=== PATIENT | male | born 1970 | race African-American/Black ===

== ENCOUNTER 2023-10-27 16:26 | Inpatient (IN) | payer OTHER ==
[2023-10-27] MEDS ORDERED: PIPERACILLIN/TAZOB 4.5 GM 4.5 GM/100 ML BAG IVPB ONE (17:11)
[2023-10-27] MEDS: ACETAMINOPHEN 1000 MG/100 ML BAG IVPB ONE (17:15)
[2023-10-27] MEDS: SODIUM CHLORIDE 0.9% 1000 ML INFUS.BAG IV STA (17:15)
[2023-10-27 17:16] LABS: VENOUS BASE EXCESS 0.9 mmol/L (-2-2); VENOUS O2 SATURATION 98.3 % (70-80); VENOUS PCO2 32.8 mmHg (38-52); VENOUS PH 7.483 (7.310-7.410)
[2023-10-27 17:20] LABS: BASO % 0.4 % (0-2.0); HEMATOCRIT 26.7 % (35.4-49); HEMOGLOBIN 9.1 GM/dL (11.7-16.9); LYMPH % 17.4 % (8-40); MCH 31.7 pg (25.7-33.7); MCHC 34.2 g/dl (32.0-35.9); MEAN CELL VOLUME 92.6 fl (80-96); MEAN PLT VOLUME 7.5 fl (7.5-11.1); MONO % 14.1 % (3.8-10.2); NEUT % 68.1 % (42.8-82.8); PLATELET COUNT 374 10^3/uL (134-434); RBC 2.88 M/mm3 (4.00-5.60); RDW 15.6 % (11.9-15.9); WHITE BLOOD COUNT 13.3 K/mm3 (4.0-10.0)
[2023-10-27 17:38] LABS: POTASSIUM 4.2 mmol/L (3.5-5.1)
[2023-10-27 17:38] LABS: EPI CELLS >36 /uL (0-25.1); HYALINE CASTS 3 /uL (0-3.1); PH,URINE 6.5 (5.0-8.0); URINE APPEARANCE CLEAR; URINE BACTERIA 72 /uL (0-1359); URINE BILIRUBIN NEGATIVE (NEGATIVE); URINE COLOR RED; URINE GLUCOSE (UA) NEGATIVE (NEGATIVE); URINE KETONE TRACE (NEGATIVE); URINE LEUK ESTERASE 1+ (NEGATIVE); URINE NITRITE NEGATIVE (NEGATIVE); URINE PROTEIN 1+ (NEGATIVE); URINE RBC 6489 /uL (0-23.9); URINE WBC 107 /uL (0-25.8)
[2023-10-27 17:39] LABS: CALCIUM 8.2 mg/dL (8.5-10.1)
[2023-10-27 17:40] LABS: ALBUMIN 2.6 g/dl (3.4-5.0)
[2023-10-27 17:43] LABS: CREATININE 0.6 mg/dL (0.55-1.3)
[2023-10-27 17:44] LABS: LACTIC ACID 2.1 mmol/L (0.4-2.0)
[2023-10-27 17:44] LABS: BILIRUBIN,TOTAL 0.5 mg/dL (0.2-1); TOT PROT 6.8 g/dl (6.4-8.2)
[2023-10-27 17:45] LABS: INR 1.71 (0.83-1.09)
[2023-10-27] MEDS: PIPERACILLIN/TAZOB 4.5 GM 4.5 GM in DEXTROSE 5%-WATER 100 ML IVPB ONE (17:45)
[2023-10-27] MEDS: VANCOMYCIN 1,000 MG in DEXTROSE 5%-WATER - 250 ML IVPB ONE (17:50)
[2023-10-27] MEDS ORDERED: VANCOMYCIN 1 GRAM (PRE-DOCKED) 1,000 MG/250 ML BAG IVPB ONE (17:50)
[2023-10-27] MEDS: LACTATED RINGERS SOLUTION 1,000 ML IV STA (17:52)
[2023-10-27 19:41] LABS: URINE CRYSTALS PRESENT /hpf
[2023-10-27 20:25] LABS: LACTIC ACID 2.7 mmol/L (0.4-2.0)
[2023-10-27] MEDS ORDERED: Lacosamide 50 MG/5 ML ORAL SOLUTION UNIT CUPS ONE (20:58)
[2023-10-27] MEDS: levETIRAcetam 500 MG/5 ML ORAL SOLUTION (UNIT-DOSE CUPS) GT ONE (21:12)
[2023-10-27] MEDS: VALPROATE SODIUM 250 MG/5 ML UNIT DOSE CUP GT ONE (21:12)
[2023-10-27] MEDS: Lacosamide 50 MG/5 ML ORAL SOLUTION UNIT CUPS GT ONE (21:12)
[2023-10-27] MEDS: LACTATED RINGERS SOLUTION 1000 ML INFUS.BAG IV ONE (21:22)
[2023-10-27] MEDS: levETIRAcetam 500 MG/5 ML ORAL SOLUTION (UNIT-DOSE CUPS) PO ONE (23:41)
[2023-10-28 03:18] LABS: LACTIC ACID 2.6 mmol/L (0.4-2.0)
[2023-10-28] MEDS ORDERED: LACTATED RINGERS SOLUTION 1,000 ML/1,000 ML INFUS.BAG IV SCH (07:00)
[2023-10-28] MEDS: LACTATED RINGERS SOLUTION 1000 ML INFUS.BAG IV ONE (07:10)
[2023-10-28] MEDS: levETIRAcetam 500 MG/5 ML ORAL SOLUTION (UNIT-DOSE CUPS) GT SCH ×2 (07:11→22:36)
[2023-10-28] MEDS: VALPROATE SODIUM 250 MG/5 ML UNIT DOSE CUP GT SCH ×2 (08:55→22:36)
[2023-10-28] MEDS: LACTATED RINGERS SOLUTION 1,000 ML/1,000 ML INFUS.BAG IV SCH ×2 (09:00→17:34)
[2023-10-28] MEDS ORDERED: PIPERACILLIN/TAZOB 3.375 GM 3.375 GM/50 ML BAG IVPB ONE ×2 (09:04→17:34)
[2023-10-28] MEDS: BETHANECHOL CHLORIDE 25 MG TABLET GT SCH ×2 (09:10→22:36)
[2023-10-28] MEDS: PIPERACILLIN/TAZOB 3.375 GM 3.375 GM in DEXTROSE 5%-WATER - 50 ML IVPB SCH ×3 (09:15→18:47)
[2023-10-28 11:13] LABS: BASO % 0.4 % (0-2.0); EOS % 0.5 % (0-4.5); HEMATOCRIT 25.9 % (35.4-49); HEMOGLOBIN 8.6 GM/dL (11.7-16.9); MCH 31.5 pg (25.7-33.7); MCHC 33.3 g/dl (32.0-35.9); MEAN CELL VOLUME 94.5 fl (80-96); MEAN PLT VOLUME 7.3 fl (7.5-11.1); MONO % 7.8 % (3.8-10.2); NEUT % 75.3 % (42.8-82.8); PLATELET COUNT 276 10^3/uL (134-434); RBC 2.74 M/mm3 (4.00-5.60); RDW 15.3 % (11.9-15.9); WHITE BLOOD COUNT 8.4 K/mm3 (4.0-10.0)
[2023-10-28 11:40] LABS: POTASSIUM 3.7 mmol/L (3.5-5.1)
[2023-10-28 11:42] LABS: CALCIUM 8.5 mg/dL (8.5-10.1)
[2023-10-28 11:43] LABS: ALBUMIN 2.4 g/dl (3.4-5.0); BLOOD UREA NITROGEN 10.3 mg/dL (7-18); MAGNESIUM 1.8 mg/dL (1.8-2.4)
[2023-10-28 11:46] LABS: CREATININE 0.4 mg/dL (0.55-1.3); PHOSPHOROUS 2.9 mg/dL (2.5-4.9)
[2023-10-28 11:47] LABS: TOT PROT 6.3 g/dl (6.4-8.2)
[2023-10-28 11:48] LABS: BILIRUBIN,TOTAL 0.6 mg/dL (0.2-1)
[2023-10-28] MEDS: MUPIROCIN 2% TOPICAL OINTMENT 22 GM TUBE TP SCH ×2 (13:25→22:36)
[2023-10-28] MEDS ORDERED: VANCOMYCIN 1 GRAM (PRE-DOCKED) 1,000 MG/250 ML BAG IVPB ONE (17:10)
[2023-10-28] MEDS: VANCOMYCIN 1 GRAM (PRE-DOCKED) 1,000 MG/250 ML BAG IVPB SCH ×2 (17:19→17:20)
[2023-10-29] MEDS ORDERED: PIPERACILLIN/TAZOB 3.375 GM 3.375 GM in DEXTROSE 5%-WATER - 50 ML IVPB SCH (02:00)
[2023-10-29] MEDS: ACETAMINOPHEN 1000 MG/100 ML BAG IVPB ONE ×2 (02:41→22:34)
[2023-10-29] MEDS: PIPERACILLIN/TAZOB 3.375 GM 3.375 GM in DEXTROSE 5%-WATER - 50 ML IVPB SCH (04:55)
[2023-10-29] MEDS: VALPROATE SODIUM 250 MG/5 ML UNIT DOSE CUP GT SCH (05:13)
[2023-10-29] MEDS: VANCOMYCIN/WATER FOR INJ (PEG) 1,000 MG/200 ML BAG IVPB SCH (05:13)
[2023-10-29] MEDS: LACTATED RINGERS SOLUTION 1,000 ML/1,000 ML INFUS.BAG IV SCH (05:13)
[2023-10-29 09:01] LABS: BASO % 0.4 % (0-2.0); EOS % 1.3 % (0-4.5); HEMATOCRIT 21.9 % (35.4-49); HEMOGLOBIN 7.3 GM/dL (11.7-16.9); LYMPH % 18.3 % (8-40); MCH 31.4 pg (25.7-33.7); MCHC 33.4 g/dl (32.0-35.9); MEAN CELL VOLUME 93.8 fl (80-96); MEAN PLT VOLUME 7.8 fl (7.5-11.1); MONO % 6.5 % (3.8-10.2); NEUT % 73.5 % (42.8-82.8); PLATELET COUNT 258 10^3/uL (134-434); RBC 2.33 M/mm3 (4.00-5.60); RDW 15.5 % (11.9-15.9); WHITE BLOOD COUNT 7.9 K/mm3 (4.0-10.0)
[2023-10-29 09:27] LABS: POTASSIUM 3.7 mmol/L (3.5-5.1)
[2023-10-29 09:30] LABS: CALCIUM 8.3 mg/dL (8.5-10.1)
[2023-10-29 09:31] LABS: ALBUMIN 2.1 g/dl (3.4-5.0)
[2023-10-29 09:34] LABS: CREATININE 0.5 mg/dL (0.55-1.3)
[2023-10-29 09:35] LABS: BILIRUBIN,TOTAL 0.5 mg/dL (0.2-1)
[2023-10-29 09:36] LABS: TOT PROT 5.4 g/dl (6.4-8.2)
[2023-10-29] MEDS: levETIRAcetam 500 MG/5 ML ORAL SOLUTION (UNIT-DOSE CUPS) GT SCH (09:57)
[2023-10-29] MEDS: BETHANECHOL CHLORIDE 25 MG TABLET GT SCH (10:00)
[2023-10-29] MEDS ORDERED: MUPIROCIN 2% TOPICAL OINTMENT 22 GM TUBE TP SCH (10:00)
[2023-10-29 13:29] VITALS: BMI 22.1
[2023-10-30 08:58] LABS: BASO % 0.1 % (0-2.0); HEMATOCRIT 22.4 % (35.4-49); HEMOGLOBIN 7.7 GM/dL (11.7-16.9); LYMPH % 12.1 % (8-40); MCH 31.9 pg (25.7-33.7); MCHC 34.1 g/dl (32.0-35.9); MEAN CELL VOLUME 93.5 fl (80-96); MEAN PLT VOLUME 7.6 fl (7.5-11.1); MONO % 5.7 % (3.8-10.2); NEUT % 78.1 % (42.8-82.8); PLATELET COUNT 257 10^3/uL (134-434); RDW 15.7 % (11.9-15.9); WHITE BLOOD COUNT 5.4 K/mm3 (4.0-10.0)
[2023-10-30 09:14] LABS: POTASSIUM 3.6 mmol/L (3.5-5.1)
[2023-10-30 09:16] LABS: CALCIUM 8.5 mg/dL (8.5-10.1)
[2023-10-30 09:17] LABS: ALBUMIN 2.1 g/dl (3.4-5.0); BLOOD UREA NITROGEN 8.7 mg/dL (7-18)
[2023-10-30 09:20] LABS: CREATININE 0.5 mg/dL (0.55-1.3)
[2023-10-30 09:21] LABS: BILIRUBIN,TOTAL 0.4 mg/dL (0.2-1); TOT PROT 5.5 g/dl (6.4-8.2)
[2023-10-30] MEDS: AMINO ACIDS/PROTEIN HYDROLYS 30 ML LIQUID.PKT PO SCH (09:34)
[2023-11-01 06:46] VITALS: BP 139/90; TEMP 99.3
[2023-11-01 07:44] VITALS: PULSE 89; RESP 25
== END 2023-11-01 11:57 | DRG 870 ==
LOC: JER 16:26 → JERBED 20:15 → J5S 10-29 01:08
PROVIDERS: ADMIT Internal Medicine
PROC: 5A1955Z Respiratory Ventilation, Greater than 96 Consecutive Hours (ICD-10-PCS; principal; 2023-10-27)
DX: A41.89 Other specified sepsis (principal); G93.41 Metabolic encephalopathy; N39.0 Urinary tract infection, site not specified; J96.11 Chronic respiratory failure with hypoxia; G93.1 Anoxic brain damage, not elsewhere classified; E87.20 Acidosis, unspecified; J95.851 Ventilator associated pneumonia; R65.20 Severe sepsis without septic shock; G40.909 Epilepsy, unspecified, not intractable, without status epilepticus; D63.8 Anemia in other chronic diseases classified elsewhere; B96.5 Pseudomonas (aeruginosa) (mallei) (pseudomallei) as the cause of diseases classified elsewhere; R41.82 Altered mental status, unspecified; R31.0 Gross hematuria
CPT/HCPCS: 0241U-QW; 36415; 70450-TC; 71045-TC-FY; 76775-TC; 76856-TC; 80053; 81003; 82607; 82728; 82746; 82803; 82962; 83540; 83550; 83605; 83735; 84100; 84466; 84484; 85025; 85045; 85610; 85730; 86850; 86900; 86901; 87040; 87070; 87086; 87186; 87205; 87635; 93005; 93010; 93970-TC; 94002; 99285-25; G0480; J0131

== ENCOUNTER 2024-01-28 22:59 | Inpatient (IN) | payer OTHER ==
[2024-01-28] MEDS: SODIUM CHLORIDE 1,000 ML IV STA (23:43)
[2024-01-28] MEDS: ACETAMINOPHEN 1000 MG/100 ML BAG IVPB ONE (23:55)
[2024-01-28] MEDS ORDERED: PIPERACILLIN/TAZOB 3.375 GM 3.375 GM/50 ML BAG IVPB ONE (23:56)
[2024-01-28] MEDS ORDERED: ACETAMINOPHEN INJECTION 100 ML ONE (23:56)
[2024-01-28 23:58] LABS: VENOUS BASE EXCESS 0.9 mmol/L (-2-2); VENOUS O2 SATURATION 79.2 % (70-80); VENOUS PCO2 37.4 mmHg (38-52); VENOUS PH 7.44 (7.310-7.410)
[2024-01-28] MEDS: PIPERACILLIN/TAZOB 3.375 GM 3.375 GM in DEXTROSE 5%-WATER - 50 ML IVPB ONE (23:59)
[2024-01-29] MEDS: SODIUM CHLORIDE 1,000 ML IV STA
[2024-01-29 00:01] LABS: BASO % 0.3 % (0-2.0); HEMATOCRIT 35.3 % (35.4-49); HEMOGLOBIN 11.7 GM/dL (11.7-16.9); LYMPH % 3.7 % (8-40); MCH 31.4 pg (25.7-33.7); MCHC 33.2 g/dl (32.0-35.9); MEAN CELL VOLUME 94.5 fl (80-96); MEAN PLT VOLUME 8.9 fl (7.5-11.1); MONO % 15.3 % (3.8-10.2); NEUT % 79.7 % (42.8-82.8); PLATELET COUNT 380 10^3/uL (134-434); RBC 3.74 M/mm3 (4.00-5.60); WHITE BLOOD COUNT 24.6 K/mm3 (4.0-10.0)
[2024-01-29 00:10] LABS: INR 1.24 (0.83-1.09); PROTHROMBIN TIME (PATIENT) 13.9 SEC (9.7-13.0)
[2024-01-29 00:12] LABS: ACTIVATED PTT 25.9 SECONDS (25.2-36.5)
[2024-01-29 00:16] LABS: ALBUMIN 1.7 g/dl (3.4-5.0); BLOOD UREA NITROGEN 33.7 mg/dL (7-18); CALCIUM 8.2 mg/dL (8.5-10.1)
[2024-01-29 00:19] LABS: CREATININE 0.8 mg/dL (0.55-1.3)
[2024-01-29 00:21] LABS: TOT PROT 5.6 g/dl (6.4-8.2)
[2024-01-29 00:28] LABS: BILIRUBIN,TOTAL 0.3 mg/dL (0.2-1)
[2024-01-29 01:05] LABS: EPI CELLS >36 /uL (0-25.1); HYALINE CASTS 8 /uL (0-3.1); PH,URINE 5.5 (5.0-8.0); URINE APPEARANCE CLOUDY; URINE BILIRUBIN NEGATIVE (NEGATIVE); URINE COLOR DK YELLOW; URINE GLUCOSE (UA) NEGATIVE (NEGATIVE); URINE KETONE TRACE (NEGATIVE); URINE LEUK ESTERASE NEGATIVE (NEGATIVE); URINE NITRITE NEGATIVE (NEGATIVE); URINE PROTEIN 2+ (NEGATIVE); URINE RBC 10 /uL (0-23.9)
[2024-01-29 01:38] LABS: LACTIC ACID 4.3 mmol/L (0.4-2.0)
[2024-01-29 03:28] LABS: LACTIC ACID 4.1 mmol/L (0.4-2.0)
[2024-01-29 04:46] LABS: ANISOCYTOSIS 1+; MACROCYTOSIS 0; TEAR DROP CELLS 1+
[2024-01-29] MEDS: LACTATED RINGERS SOLUTION 1,000 ML/1,000 ML INFUS.BAG IV STA (08:16)
[2024-01-29 08:36] LABS: POTASSIUM 3.8 mmol/L (3.5-5.1)
[2024-01-29 08:38] LABS: CALCIUM 8.1 mg/dL (8.5-10.1)
[2024-01-29 08:39] LABS: ALBUMIN 1.6 g/dl (3.4-5.0)
[2024-01-29 08:42] LABS: CREATININE 0.7 mg/dL (0.55-1.3)
[2024-01-29 08:43] LABS: BILIRUBIN,TOTAL 0.5 mg/dL (0.2-1); TOT PROT 4.9 g/dl (6.4-8.2)
[2024-01-29 08:49] LABS: LACTIC ACID 4.7 mmol/L (0.4-2.0)
[2024-01-29] MEDS ORDERED: Lacosamide 50 MG/5 ML ORAL SOLUTION UNIT CUPS ONE (08:50)
[2024-01-29] MEDS ORDERED: ACETAMINOPHEN INJECTION 100 ML ONE ×2 (08:51→18:49)
[2024-01-29] MEDS: LACTATED RINGERS SOLUTION 1,000 ML/1,000 ML INFUS.BAG IV SCH ×2 (09:16→21:07)
[2024-01-29] MEDS: VALPROATE SODIUM 250 MG/5 ML UNIT DOSE CUP GT SCH (09:16)
[2024-01-29] MEDS: ACETAMINOPHEN 1000 MG/100 ML BAG IVPB ONE (09:16)
[2024-01-29] MEDS: Lacosamide 50 MG/5 ML ORAL SOLUTION UNIT CUPS GT SCH (09:17)
[2024-01-29] MEDS: levETIRAcetam 500 MG/5 ML ORAL SOLUTION (UNIT-DOSE CUPS) GT SCH (09:17)
[2024-01-29] MEDS: BETHANECHOL CHLORIDE 25 MG TABLET GT SCH (09:17)
[2024-01-29] MEDS ORDERED: POLYETHYLENE GLYCOL (HEALTHYLAX) 3350 17 GM PACKET GT SCH (10:00)
[2024-01-29] MEDS: ENOXAPARIN NA (PORCINE) 40 MG/0.4 ML DISP.SYRIN SQ SCH (12:28)
[2024-01-29] MEDS: PIPERACILLIN/TAZOB 3.375 GM 3.375 GM in DEXTROSE 5%-WATER - 50 ML IVPB SCH ×2 (12:28→21:08)
[2024-01-29 15:59] LABS: LACTIC ACID 4.5 mmol/L (0.4-2.0)
[2024-01-29] MEDS: VANCOMYCIN 250 MG/5 ML ORAL SOLUTION (RESTRICTED TO ID ONLY) PO SCH (20:10)
[2024-01-29] MEDS: VANCOMYCIN 1,000 MG in DEXTROSE 5%-WATER - 250 ML IVPB ONE (21:08)
[2024-01-29] MEDS: VANCOMYCIN 250 MG/5 ML ORAL SOLUTION (RESTRICTED TO ID ONLY) GT SCH (21:08)
[2024-01-30] MEDS: ACETAMINOPHEN 1000 MG/100 ML BAG IVPB PRN (04:37)
[2024-01-30 07:10] LABS: LACTIC ACID 3.5 mmol/L (0.4-2.0)
[2024-01-30] MEDS: SODIUM CHLORIDE 1,000 ML IV STA (16:00)
[2024-01-30 17:11] LABS: LACTIC ACID 2.6 mmol/L (0.4-2.0)
[2024-01-30] MEDS: LACTATED RINGERS SOLUTION 1,000 ML/1,000 ML INFUS.BAG IV SCH (21:45)
[2024-01-31] MEDS: ACETAMINOPHEN 1000 MG/100 ML BAG IVPB ONE (03:42)
[2024-01-31 06:44] LABS: HEMATOCRIT 30.3 % (35.4-49); HEMOGLOBIN 9.9 GM/dL (11.7-16.9); MCHC 32.6 g/dl (32.0-35.9); MEAN PLT VOLUME 8.7 fl (7.5-11.1); PLATELET COUNT 413 10^3/uL (134-434); RBC 3.19 M/mm3 (4.00-5.60); RDW 13.7 % (11.9-15.9); WHITE BLOOD COUNT 32.6 K/mm3 (4.0-10.0)
[2024-01-31 06:59] LABS: POTASSIUM 3.3 mmol/L (3.5-5.1)
[2024-01-31 07:02] LABS: CALCIUM 7.5 mg/dL (8.5-10.1)
[2024-01-31 07:03] LABS: ALBUMIN 1.4 g/dl (3.4-5.0); BLOOD UREA NITROGEN 31.3 mg/dL (7-18); MAGNESIUM 2.3 mg/dL (1.8-2.4)
[2024-01-31 07:06] LABS: CREATININE 0.8 mg/dL (0.55-1.3)
[2024-01-31 07:10] LABS: BILIRUBIN,TOTAL 0.4 mg/dL (0.2-1); TOT PROT 4.3 g/dl (6.4-8.2)
[2024-01-31] MEDS: POTASSIUM CHLORIDE ORAL LIQUID 20 MEQ/15 ML PO ONE (09:00)
[2024-01-31] MEDS: KCL 10 MEQ IVPB 10 MEQ/100 ML INFUS.BAG IVPB SCH (09:00)
[2024-01-31 09:49] LABS: ANISOCYTOSIS 0; HELMET CELLS 0; HOWELL-JOLLY BODIES 0; MACROCYTOSIS 0; OVALOCYTE 0; ROULEAU 0; SICKELED CELLS 0; TARGET CELLS 0; TEAR DROP CELLS 0; TOXIC GRANULATION 0
[2024-01-31 10:31] LABS: LACTIC ACID 3.8 mmol/L (0.4-2.0)
[2024-01-31 15:14] VITALS: BMI 23.9
[2024-01-31] MEDS: LACTATED RINGERS SOLUTION 1,000 ML/1,000 ML INFUS.BAG IV SCH ×2 (15:17→18:09)
[2024-01-31] MEDS: SILVER SULFADIAZINE 1% TOP CREAM 50 GM JAR TP SCH (18:08)
[2024-01-31] MEDS ORDERED: ACETAMINOPHEN INJECTION 100 ML ONE (19:02)
[2024-02-01 08:29] LABS: HEMATOCRIT 31.1 % (35.4-49); HEMOGLOBIN 10.4 GM/dL (11.7-16.9); MCH 31.9 pg (25.7-33.7); MCHC 33.6 g/dl (32.0-35.9); MEAN PLT VOLUME 9.1 fl (7.5-11.1); PLATELET COUNT 381 10^3/uL (134-434); RBC 3.28 M/mm3 (4.00-5.60); RDW 14.3 % (11.9-15.9)
[2024-02-01 08:48] LABS: POTASSIUM 4.3 mmol/L (3.5-5.1)
[2024-02-01 08:52] LABS: ALBUMIN 1.4 g/dl (3.4-5.0)
[2024-02-01 08:54] LABS: CALCIUM 7.4 mg/dL (8.5-10.1); MAGNESIUM 2.3 mg/dL (1.8-2.4)
[2024-02-01 08:55] LABS: CREATININE 0.6 mg/dL (0.55-1.3); PHOSPHOROUS 2.4 mg/dL (2.5-4.9)
[2024-02-01 08:57] LABS: BILIRUBIN,TOTAL 0.5 mg/dL (0.2-1); TOT PROT 4.4 g/dl (6.4-8.2)
[2024-02-01 10:11] LABS: ANISOCYTOSIS 2+; MACROCYTOSIS 0
[2024-02-01] MEDS: LACTOBACILLUS ACIDOPHILUS 1 TABLET GT SCH (21:26)
[2024-02-01] MEDS: ACETAMINOPHEN 1000 MG/100 ML BAG IVPB ONE (21:26)
[2024-02-02 07:58] LABS: HEMATOCRIT 29.9 % (35.4-49); MCH 31.7 pg (25.7-33.7); MCHC 33.4 g/dl (32.0-35.9); MEAN PLT VOLUME 8.2 fl (7.5-11.1); PLATELET COUNT 397 10^3/uL (134-434); RBC 3.15 M/mm3 (4.00-5.60); RDW 13.9 % (11.9-15.9); WHITE BLOOD COUNT 16.1 K/mm3 (4.0-10.0)
[2024-02-02 08:00] LABS: POTASSIUM 3.8 mmol/L (3.5-5.1)
[2024-02-02 08:03] LABS: ALBUMIN 1.3 g/dl (3.4-5.0); BLOOD UREA NITROGEN 16.7 mg/dL (7-18)
[2024-02-02 08:05] LABS: CALCIUM 7.1 mg/dL (8.5-10.1); CREATININE 0.5 mg/dL (0.55-1.3); MAGNESIUM 2.1 mg/dL (1.8-2.4)
[2024-02-02 08:07] LABS: BILIRUBIN,TOTAL 0.3 mg/dL (0.2-1); TOT PROT 4.3 g/dl (6.4-8.2)
[2024-02-02 08:47] LABS: ANISOCYTOSIS 1+; MACROCYTOSIS 0
[2024-02-02] MEDS ORDERED: ACETAMINOPHEN 1000 MG/100 ML BAG IVPB PRN (12:46)
[2024-02-02 13:47] LABS: LACTIC ACID 3.4 mmol/L (0.4-2.0)
[2024-02-02] MEDS: SODIUM CHLORIDE 1,000 ML IV STA ×2 (14:48→14:49)
[2024-02-02] MEDS: ACETAMINOPHEN 1000 MG/100 ML BAG IVPB PRN (15:40)
[2024-02-02] MEDS: AMINO ACIDS/PROTEIN HYDROLYS 30 ML LIQUID.PKT GT SCH (17:13)
[2024-02-02] MEDS: ALBUTEROL SO4 2.5/IPRATROPIUM 0.5 INH SOL 3 ML VIAL.NEB. NEB ONE (19:24)
[2024-02-03] MEDS ORDERED: SODIUM CHLORIDE 500 ML IV STA (04:17)
[2024-02-03] MEDS: SODIUM CHLORIDE 500 ML IV STA ×2 (05:20→05:21)
[2024-02-03 08:50] LABS: HEMATOCRIT 27.9 % (35.4-49); HEMOGLOBIN 9.2 GM/dL (11.7-16.9); MCH 31.4 pg (25.7-33.7); MCHC 32.8 g/dl (32.0-35.9); MEAN CELL VOLUME 95.8 fl (80-96); PLATELET COUNT 386 10^3/uL (134-434); RBC 2.91 M/mm3 (4.00-5.60); RDW 13.9 % (11.9-15.9); WHITE BLOOD COUNT 10.8 K/mm3 (4.0-10.0)
[2024-02-03 09:20] LABS: ANISOCYTOSIS 1+; MACROCYTOSIS 0
[2024-02-03 09:22] LABS: POTASSIUM 3.9 mmol/L (3.5-5.1)
[2024-02-03 09:27] LABS: LACTIC ACID 3.3 mmol/L (0.4-2.0)
[2024-02-03 09:36] LABS: ALBUMIN 1.2 g/dl (3.4-5.0); BLOOD UREA NITROGEN 11.5 mg/dL (7-18); CALCIUM 7.1 mg/dL (8.5-10.1)
[2024-02-03 09:38] LABS: MAGNESIUM 2.1 mg/dL (1.8-2.4)
[2024-02-03 09:40] LABS: BILIRUBIN,TOTAL 0.3 mg/dL (0.2-1); CREATININE 0.4 mg/dL (0.55-1.3)
[2024-02-03] MEDS: ACETAMINOPHEN 1000 MG/100 ML BAG IVPB PRN (14:52)
[2024-02-04 08:56] LABS: BASO % 0.1 % (0-2.0); EOS % 1.3 % (0-4.5); HEMATOCRIT 27.3 % (35.4-49); HEMOGLOBIN 9.2 GM/dL (11.7-16.9); LYMPH % 8.5 % (8-40); MCH 32.1 pg (25.7-33.7); MCHC 33.7 g/dl (32.0-35.9); MEAN CELL VOLUME 95.4 fl (80-96); MEAN PLT VOLUME 7.6 fl (7.5-11.1); MONO % 12.7 % (3.8-10.2); NEUT % 77.4 % (42.8-82.8); PLATELET COUNT 460 10^3/uL (134-434); RBC 2.87 M/mm3 (4.00-5.60); RDW 13.9 % (11.9-15.9); WHITE BLOOD COUNT 10.3 K/mm3 (4.0-10.0)
[2024-02-04 09:11] LABS: POTASSIUM 3.7 mmol/L (3.5-5.1)
[2024-02-04 09:14] LABS: ALBUMIN 1.2 g/dl (3.4-5.0); BLOOD UREA NITROGEN 9.9 mg/dL (7-18); CALCIUM 7.4 mg/dL (8.5-10.1)
[2024-02-04 09:17] LABS: CREATININE 0.5 mg/dL (0.55-1.3)
[2024-02-04 09:18] LABS: BILIRUBIN,TOTAL 0.4 mg/dL (0.2-1)
[2024-02-04 09:19] LABS: TOT PROT 4.3 g/dl (6.4-8.2)
[2024-02-04 09:22] LABS: LACTIC ACID 3.8 mmol/L (0.4-2.0)
[2024-02-04] MEDS: NAPH,MB-DB/K PH,MBDB POWDER PACKET GT ONE (16:12)
[2024-02-04] MEDS: ACETAMINOPHEN 1000 MG/100 ML BAG IVPB PRN (20:29)
[2024-02-04] MEDS: ZINC OXIDE 20% TOPICAL OINTMENT 30 GM TUBE TP SCH (21:45)
[2024-02-05 07:34] LABS: HEMATOCRIT 24.3 % (35.4-49); HEMOGLOBIN 8.2 GM/dL (11.7-16.9); MCH 31.9 pg (25.7-33.7); MCHC 33.7 g/dl (32.0-35.9); MEAN CELL VOLUME 94.8 fl (80-96); MEAN PLT VOLUME 7.4 fl (7.5-11.1); PLATELET COUNT 457 10^3/uL (134-434); RBC 2.57 M/mm3 (4.00-5.60); WHITE BLOOD COUNT 10.8 K/mm3 (4.0-10.0)
[2024-02-05 07:43] LABS: POTASSIUM 3.8 mmol/L (3.5-5.1)
[2024-02-05 07:50] LABS: ALBUMIN 1.1 g/dl (3.4-5.0); BLOOD UREA NITROGEN 7.5 mg/dL (7-18); MAGNESIUM 1.8 mg/dL (1.8-2.4)
[2024-02-05 07:53] LABS: CREATININE 0.5 mg/dL (0.55-1.3); LACTIC ACID 4.2 mmol/L (0.4-2.0); PHOSPHOROUS 2.3 mg/dL (2.5-4.9)
[2024-02-05 07:54] LABS: BILIRUBIN,TOTAL 0.2 mg/dL (0.2-1); TOT PROT 3.8 g/dl (6.4-8.2)
[2024-02-05] MEDS: LACTATED RINGERS SOLUTION 1,000 ML/1,000 ML INFUS.BAG IV SCH (13:06)
[2024-02-05] MEDS: CHOLESTYRAMINE/NUTRASWEET 4 GM PACKET PO SCH (13:08)
[2024-02-05] MEDS ORDERED: BANATROL PLUS POWDER PACKET PO SCH (14:00)
[2024-02-05] MEDS: NAPH,MB-DB/K PH,MBDB POWDER PACKET GT ONE (17:28)
[2024-02-06] MEDS: ACETAMINOPHEN 1000 MG/100 ML BAG IVPB ONE (05:02)
[2024-02-06 06:58] LABS: BASO % 0.8 % (0-2.0); EOS % 0.5 % (0-4.5); HEMATOCRIT 27.1 % (35.4-49); HEMOGLOBIN 8.8 GM/dL (11.7-16.9); LYMPH % 9.8 % (8-40); MCHC 32.6 g/dl (32.0-35.9); MEAN CELL VOLUME 98.1 fl (80-96); MEAN PLT VOLUME 8.1 fl (7.5-11.1); NEUT % 81.9 % (42.8-82.8); PLATELET COUNT 352 10^3/uL (134-434); RBC 2.76 M/mm3 (4.00-5.60); RDW 14.2 % (11.9-15.9); WHITE BLOOD COUNT 10.1 K/mm3 (4.0-10.0)
[2024-02-06 07:25] LABS: POTASSIUM 4.1 mmol/L (3.5-5.1)
[2024-02-06 07:29] LABS: CALCIUM 7.4 mg/dL (8.5-10.1)
[2024-02-06 07:30] LABS: ALBUMIN 1.2 g/dl (3.4-5.0); BLOOD UREA NITROGEN 11.1 mg/dL (7-18)
[2024-02-06 07:33] LABS: CREATININE 0.5 mg/dL (0.55-1.3)
[2024-02-06 07:35] LABS: BILIRUBIN,TOTAL 0.5 mg/dL (0.2-1); TOT PROT 4.3 g/dl (6.4-8.2)
[2024-02-06 08:16] LABS: LACTIC ACID 4.4 mmol/L (0.4-2.0)
[2024-02-06] MEDS: SODIUM CHLORIDE 500 ML IV STA (08:54)
[2024-02-06 09:51] LABS: PHOSPHOROUS 2.9 mg/dL (2.5-4.9)
[2024-02-06] MEDS ORDERED: FIDAXOMICIN 200 MG TABLET PO SCH (10:30)
[2024-02-06 12:00] LABS: HEMATOCRIT 24.8 % (35.4-49); HEMOGLOBIN 7.9 GM/dL (11.7-16.9); MCHC 31.8 g/dl (32.0-35.9); MEAN CELL VOLUME 97.3 fl (80-96); MEAN PLT VOLUME 7.3 fl (7.5-11.1); PLATELET COUNT 492 10^3/uL (134-434); RBC 2.55 M/mm3 (4.00-5.60); RDW 14.5 % (11.9-15.9); WHITE BLOOD COUNT 8.6 K/mm3 (4.0-10.0)
[2024-02-06] MEDS: MIDODRINE HCL 5 MG TABLET PO SCH (18:14)
[2024-02-06] MEDS: ACETAMINOPHEN 1000 MG/100 ML BAG IVPB PRN (21:39)
[2024-02-07 08:38] LABS: BASO % 0.3 % (0-2.0); EOS % 0.5 % (0-4.5); HEMATOCRIT 24.3 % (35.4-49); HEMOGLOBIN 7.8 GM/dL (11.7-16.9); MCH 31.4 pg (25.7-33.7); MEAN CELL VOLUME 98.3 fl (80-96); MEAN PLT VOLUME 7.8 fl (7.5-11.1); MONO % 6.4 % (3.8-10.2); NEUT % 75.8 % (42.8-82.8); PLATELET COUNT 513 10^3/uL (134-434); RBC 2.47 M/mm3 (4.00-5.60); RDW 14.4 % (11.9-15.9); WHITE BLOOD COUNT 7.3 K/mm3 (4.0-10.0)
[2024-02-07 08:51] LABS: CHLORIDE 118 mmol/L (98-107); POTASSIUM 4.1 mmol/L (3.5-5.1); SODIUM 148 mmol/L (136-145)
[2024-02-07 08:53] LABS: BLOOD UREA NITROGEN 10.2 mg/dL (7-18)
[2024-02-07 08:54] LABS: ANION GAP 9 mmol/L (4-13); CO2 21 mmol/L (21-32); GLUCOSE,RANDOM 120 mg/dL (74-106); MAGNESIUM 1.9 mg/dL (1.8-2.4)
[2024-02-07 08:55] LABS: CALCIUM 6.9 mg/dL (8.5-10.1)
[2024-02-07 08:56] LABS: CREATININE 0.5 mg/dL (0.55-1.3); SGOT/AST 19 U/L (15-37); SGPT/ALT 10 U/L (13-61)
[2024-02-07 08:58] LABS: BILIRUBIN,TOTAL 0.2 mg/dL (0.2-1); TOT PROT 3.7 g/dl (6.4-8.2)
[2024-02-07 08:59] LABS: ALK PHOS 80 U/L (45-117)
[2024-02-07] MEDS: VANCOMYCIN 250 MG/5 ML ORAL SOLUTION (RESTRICTED TO ID ONLY) PO SCH (12:00)
[2024-02-07 13:13] LABS: LACTIC ACID 3.9 mmol/L (0.4-2.0)
[2024-02-07] MEDS: VANCOMYCIN/WATER FOR INJ (PEG) 1,000 MG/200 ML BAG IVPB SCH (18:20)
[2024-02-07] MEDS: VANCOMYCIN 500 MG VIAL (RESTRICTED TO ID ONLY) RC SCH (19:34)
[2024-02-07] MEDS: ZINC OXIDE 20% TOPICAL OINTMENT 30 GM TUBE TP SCH (21:22)
[2024-02-07] MEDS: ACETAMINOPHEN 1000 MG/100 ML BAG IVPB PRN (22:02)
[2024-02-07] MEDS: TUBE FEED DECLOGGING SOLUTION 12,000 UNITS GT ONE (22:50)
[2024-02-08 09:42] LABS: BASO % 0.4 % (0-2.0); EOS % 0.2 % (0-4.5); HEMATOCRIT 17.5 % (35.4-49); LYMPH % 15.3 % (8-40); MCHC 33.6 g/dl (32.0-35.9); MEAN CELL VOLUME 95.2 fl (80-96); MEAN PLT VOLUME 7.7 fl (7.5-11.1); MONO % 6.1 % (3.8-10.2); PLATELET COUNT 168 10^3/uL (134-434); RBC 1.84 M/mm3 (4.00-5.60); WHITE BLOOD COUNT 4.7 K/mm3 (4.0-10.0)
[2024-02-08 09:58] LABS: HEMOGLOBIN 5.9 GM/dL (11.7-16.9)
[2024-02-08 10:07] LABS: POTASSIUM 4.2 mmol/L (3.5-5.1)
[2024-02-08 10:10] LABS: CALCIUM 7.2 mg/dL (8.5-10.1)
[2024-02-08 10:11] LABS: ALBUMIN 1.1 g/dl (3.4-5.0); BLOOD UREA NITROGEN 12.2 mg/dL (7-18); MAGNESIUM 1.9 mg/dL (1.8-2.4)
[2024-02-08 10:14] LABS: CREATININE 0.4 mg/dL (0.55-1.3)
[2024-02-08 10:15] LABS: BILIRUBIN,TOTAL 0.5 mg/dL (0.2-1)
[2024-02-08] MEDS ORDERED: FUROSEMIDE 40 MG/4 ML INJECTABLE VIAL ONE (12:25)
[2024-02-08 12:28] LABS: BASO % 0.3 % (0-2.0); EOS % 0.2 % (0-4.5); HEMATOCRIT 21.9 % (35.4-49); HEMOGLOBIN 7.3 GM/dL (11.7-16.9); LYMPH % 12.7 % (8-40); MCH 31.8 pg (25.7-33.7); MCHC 33.5 g/dl (32.0-35.9); MEAN PLT VOLUME 7.9 fl (7.5-11.1); MONO % 6.1 % (3.8-10.2); NEUT % 80.7 % (42.8-82.8); PLATELET COUNT 533 10^3/uL (134-434); RDW 14.3 % (11.9-15.9); WHITE BLOOD COUNT 7.1 K/mm3 (4.0-10.0)
[2024-02-08 12:36] LABS: INR 1.35 (0.83-1.09); PROTHROMBIN TIME (PATIENT) 15.4 SEC (9.7-13.0)
[2024-02-08] MEDS: FUROSEMIDE 40 MG/4 ML INJECTABLE VIAL IVPUSH ONE (12:39)
[2024-02-09 08:01] LABS: BASO % 0.3 % (0-2.0); EOS % 0.5 % (0-4.5); HEMATOCRIT 22.2 % (35.4-49); HEMOGLOBIN 7.3 GM/dL (11.7-16.9); LYMPH % 10.5 % (8-40); MCH 31.7 pg (25.7-33.7); MCHC 32.7 g/dl (32.0-35.9); MEAN CELL VOLUME 96.8 fl (80-96); MONO % 4.4 % (3.8-10.2); NEUT % 84.3 % (42.8-82.8); PLATELET COUNT 652 10^3/uL (134-434); RBC 2.29 M/mm3 (4.00-5.60); RDW 13.9 % (11.9-15.9); WHITE BLOOD COUNT 9.1 K/mm3 (4.0-10.0)
[2024-02-09 08:08] LABS: POTASSIUM 3.7 mmol/L (3.5-5.1)
[2024-02-09 08:10] LABS: CALCIUM 7.5 mg/dL (8.5-10.1)
[2024-02-09 08:11] LABS: ALBUMIN 1.2 g/dl (3.4-5.0); BLOOD UREA NITROGEN 13.6 mg/dL (7-18)
[2024-02-09 08:14] LABS: CREATININE 0.5 mg/dL (0.55-1.3)
[2024-02-09 08:15] LABS: BILIRUBIN,TOTAL 0.4 mg/dL (0.2-1); TOT PROT 4.3 g/dl (6.4-8.2)
[2024-02-09] MEDS: FUROSEMIDE 40 MG/4 ML INJECTABLE VIAL IVPUSH ONE (12:58)
[2024-02-10] MEDS ORDERED: INSULIN (LEVEMIR) 100 UNITS/ML UNITS SQ ONE (07:16)
[2024-02-10 07:50] LABS: BASO % 0.2 % (0-2.0); EOS % 0.3 % (0-4.5); HEMATOCRIT 23.5 % (35.4-49); HEMOGLOBIN 7.7 GM/dL (11.7-16.9); LYMPH % 14.4 % (8-40); MCH 32.2 pg (25.7-33.7); MCHC 32.9 g/dl (32.0-35.9); MEAN CELL VOLUME 97.9 fl (80-96); MEAN PLT VOLUME 7.9 fl (7.5-11.1); MONO % 5.4 % (3.8-10.2); NEUT % 79.7 % (42.8-82.8); PLATELET COUNT 714 10^3/uL (134-434); RDW 14.2 % (11.9-15.9); WHITE BLOOD COUNT 9.1 K/mm3 (4.0-10.0)
[2024-02-10 08:05] LABS: POTASSIUM 3.6 mmol/L (3.5-5.1)
[2024-02-10 08:07] LABS: CALCIUM 7.4 mg/dL (8.5-10.1)
[2024-02-10 08:08] LABS: ALBUMIN 1.2 g/dl (3.4-5.0)
[2024-02-10 08:11] LABS: CREATININE 0.6 mg/dL (0.55-1.3)
[2024-02-10 08:13] LABS: BILIRUBIN,TOTAL 0.3 mg/dL (0.2-1); TOT PROT 4.8 g/dl (6.4-8.2)
[2024-02-10] MEDS: SCOPOLAMINE HYDROBROMIDE 1 PATCH PATCH.TD72 TD SCH (08:59)
[2024-02-10] MEDS: FUROSEMIDE 40 MG/4 ML INJECTABLE VIAL IVPUSH ONE ×2 (13:19→21:15)
[2024-02-11 07:28] LABS: BASO % 0.3 % (0-2.0); EOS % 0.2 % (0-4.5); HEMATOCRIT 21.9 % (35.4-49); HEMOGLOBIN 7.1 GM/dL (11.7-16.9); MCH 31.6 pg (25.7-33.7); MCHC 32.6 g/dl (32.0-35.9); MEAN PLT VOLUME 7.9 fl (7.5-11.1); MONO % 6.4 % (3.8-10.2); NEUT % 73.1 % (42.8-82.8); PLATELET COUNT 712 10^3/uL (134-434); RBC 2.26 M/mm3 (4.00-5.60); RDW 13.9 % (11.9-15.9); WHITE BLOOD COUNT 7.4 K/mm3 (4.0-10.0)
[2024-02-11 07:30] LABS: CHLORIDE 113 mmol/L (98-107); SODIUM 148 mmol/L (136-145)
[2024-02-11 07:32] LABS: CALCIUM 7.7 mg/dL (8.5-10.1)
[2024-02-11 07:33] LABS: ALBUMIN 1.4 g/dl (3.4-5.0); BLOOD UREA NITROGEN 14.3 mg/dL (7-18); CO2 23 mmol/L (21-32); GLUCOSE,RANDOM 107 mg/dL (74-106)
[2024-02-11 07:36] LABS: CREATININE 0.6 mg/dL (0.55-1.3); SGOT/AST 17 U/L (15-37); SGPT/ALT 10 U/L (13-61)
[2024-02-11 07:37] LABS: BILIRUBIN,TOTAL 0.5 mg/dL (0.2-1)
[2024-02-11 07:38] LABS: TOT PROT 5.4 g/dl (6.4-8.2)
[2024-02-11 07:39] LABS: ALK PHOS 100 U/L (45-117)
[2024-02-11 07:50] LABS: ANION GAP 12 mmol/L (4-13); POTASSIUM 2.9 mmol/L (3.5-5.1)
[2024-02-11] MEDS: KCL 10 MEQ IVPB 10 MEQ/100 ML INFUS.BAG IVPB SCH ×2 (08:18→17:27)
[2024-02-12 14:31] LABS: BASO % 0.3 % (0-2.0); EOS % 0.1 % (0-4.5); HEMATOCRIT 18.5 % (35.4-49); LYMPH % 18.8 % (8-40); MCH 31.6 pg (25.7-33.7); MCHC 32.6 g/dl (32.0-35.9); MEAN PLT VOLUME 7.4 fl (7.5-11.1); MONO % 9.8 % (3.8-10.2); PLATELET COUNT 668 10^3/uL (134-434); RDW 14.1 % (11.9-15.9); WHITE BLOOD COUNT 7.6 K/mm3 (4.0-10.0)
[2024-02-12 14:32] LABS: POTASSIUM 3.7 mmol/L (3.5-5.1)
[2024-02-12 14:39] LABS: BILIRUBIN,TOTAL 0.4 mg/dL (0.2-1)
[2024-02-12 15:29] LABS: ALBUMIN 1.2 g/dl (3.4-5.0); BLOOD UREA NITROGEN 13.2 mg/dL (7-18); CALCIUM 7.6 mg/dL (8.5-10.1)
[2024-02-12 15:32] LABS: CREATININE 0.4 mg/dL (0.55-1.3)
[2024-02-12 15:33] LABS: TOT PROT 4.9 g/dl (6.4-8.2)
[2024-02-12 17:47] LABS: HEMATOCRIT 18.4 % (35.4-49); HEMOGLOBIN 6.3 GM/dL (11.7-16.9); MCH 32.3 pg (25.7-33.7); MCHC 34.3 g/dl (32.0-35.9); MEAN CELL VOLUME 94.3 fl (80-96); MEAN PLT VOLUME 7.2 fl (7.5-11.1); PLATELET COUNT 685 10^3/uL (134-434); RBC 1.96 M/mm3 (4.00-5.60); RDW 14.2 % (11.9-15.9); WHITE BLOOD COUNT 7.4 K/mm3 (4.0-10.0)
[2024-02-13 07:26] LABS: BASO % 0.5 % (0-2.0); EOS % 0.3 % (0-4.5); HEMATOCRIT 22.5 % (35.4-49); HEMOGLOBIN 7.5 GM/dL (11.7-16.9); LYMPH % 18.3 % (8-40); MCH 31.5 pg (25.7-33.7); MCHC 33.3 g/dl (32.0-35.9); MEAN CELL VOLUME 94.6 fl (80-96); MEAN PLT VOLUME 7.6 fl (7.5-11.1); MONO % 11.1 % (3.8-10.2); NEUT % 69.8 % (42.8-82.8); PLATELET COUNT 564 10^3/uL (134-434); RBC 2.38 M/mm3 (4.00-5.60); RDW 15.3 % (11.9-15.9); WHITE BLOOD COUNT 6.8 K/mm3 (4.0-10.0)
[2024-02-13 07:55] LABS: LACTIC ACID 2.2 mmol/L (0.4-2.0)
[2024-02-13 08:03] LABS: POTASSIUM 3.9 mmol/L (3.5-5.1)
[2024-02-13 08:48] LABS: ALBUMIN 1.3 g/dl (3.4-5.0); BLOOD UREA NITROGEN 13.6 mg/dL (7-18); CALCIUM 7.6 mg/dL (8.5-10.1)
[2024-02-13 08:49] LABS: BILIRUBIN,TOTAL 0.6 mg/dL (0.2-1); CREATININE 0.4 mg/dL (0.55-1.3)
[2024-02-13 08:50] LABS: TOT PROT 5.1 g/dl (6.4-8.2)
[2024-02-13] MEDS: FUROSEMIDE 40 MG/4 ML INJECTABLE VIAL IVPUSH ONE (15:32)
[2024-02-14 10:33] LABS: HEMATOCRIT 23.6 % (35.4-49); MCH 32.2 pg (25.7-33.7); MCHC 33.9 g/dl (32.0-35.9); MEAN CELL VOLUME 94.9 fl (80-96); PLATELET COUNT 512 10^3/uL (134-434); RBC 2.49 M/mm3 (4.00-5.60); RDW 15.8 % (11.9-15.9)
[2024-02-14 10:34] LABS: WHITE BLOOD COUNT 6.7 K/mm3 (4.0-10.0)
[2024-02-14 10:40] LABS: POTASSIUM 4.1 mmol/L (3.5-5.1)
[2024-02-14 10:42] LABS: CALCIUM 7.9 mg/dL (8.5-10.1)
[2024-02-14 10:43] LABS: ALBUMIN 1.4 g/dl (3.4-5.0); BLOOD UREA NITROGEN 14.1 mg/dL (7-18)
[2024-02-14 10:46] LABS: CREATININE 0.4 mg/dL (0.55-1.3)
[2024-02-14 10:47] LABS: BILIRUBIN,TOTAL 0.4 mg/dL (0.2-1); TOT PROT 5.7 g/dl (6.4-8.2)
[2024-02-14 11:08] LABS: ANISOCYTOSIS 1+; MACROCYTOSIS 0; OVALOCYTE 1+
[2024-02-14] MEDS: DEXTROSE 5%-WATER - 1,000 ML IV SCH (15:59)
[2024-02-15 07:31] LABS: BASO % 0.6 % (0-2.0); EOS % 0.6 % (0-4.5); HEMATOCRIT 22.1 % (35.4-49); HEMOGLOBIN 7.2 GM/dL (11.7-16.9); LYMPH % 20.6 % (8-40); MCH 31.3 pg (25.7-33.7); MCHC 32.6 g/dl (32.0-35.9); MEAN PLT VOLUME 7.5 fl (7.5-11.1); MONO % 10.4 % (3.8-10.2); NEUT % 67.8 % (42.8-82.8); PLATELET COUNT 575 10^3/uL (134-434); RDW 15.1 % (11.9-15.9); WHITE BLOOD COUNT 7.3 K/mm3 (4.0-10.0)
[2024-02-15 07:46] LABS: POTASSIUM 4.2 mmol/L (3.5-5.1)
[2024-02-15 07:54] LABS: ALBUMIN 1.4 g/dl (3.4-5.0); BLOOD UREA NITROGEN 12.8 mg/dL (7-18); CALCIUM 7.6 mg/dL (8.5-10.1)
[2024-02-15 07:55] LABS: TOT PROT 5.6 g/dl (6.4-8.2)
[2024-02-15 07:56] LABS: BILIRUBIN,TOTAL 0.4 mg/dL (0.2-1)
[2024-02-15 07:57] LABS: CREATININE 0.4 mg/dL (0.55-1.3); LACTIC ACID 2.6 mmol/L (0.4-2.0)
[2024-02-16 02:52] LABS: HEMATOCRIT 21.5 % (35.4-49); HEMOGLOBIN 7.2 GM/dL (11.7-16.9); MCH 31.9 pg (25.7-33.7); MCHC 33.4 g/dl (32.0-35.9); MEAN CELL VOLUME 95.4 fl (80-96); PLATELET COUNT 512 10^3/uL (134-434); RBC 2.25 M/mm3 (4.00-5.60); RDW 14.5 % (11.9-15.9); WHITE BLOOD COUNT 8.1 K/mm3 (4.0-10.0)
[2024-02-16 03:12] LABS: POTASSIUM 4.1 mmol/L (3.5-5.1)
[2024-02-16 03:13] LABS: CALCIUM 7.8 mg/dL (8.5-10.1)
[2024-02-16 03:14] LABS: ALBUMIN 1.6 g/dl (3.4-5.0); BLOOD UREA NITROGEN 12.4 mg/dL (7-18)
[2024-02-16 03:17] LABS: CREATININE 0.4 mg/dL (0.55-1.3)
[2024-02-16 03:19] LABS: BILIRUBIN,TOTAL 0.7 mg/dL (0.2-1); TOT PROT 6.1 g/dl (6.4-8.2)
[2024-02-16 06:58] LABS: BASO % 0.8 % (0-2.0); EOS % 0.5 % (0-4.5); HEMATOCRIT 20.5 % (35.4-49); LYMPH % 22.9 % (8-40); MCH 31.1 pg (25.7-33.7); MCHC 32.4 g/dl (32.0-35.9); MEAN PLT VOLUME 7.5 fl (7.5-11.1); MONO % 10.2 % (3.8-10.2); NEUT % 65.6 % (42.8-82.8); PLATELET COUNT 524 10^3/uL (134-434); RBC 2.13 M/mm3 (4.00-5.60); RDW 14.4 % (11.9-15.9)
[2024-02-16 07:22] LABS: HEMOGLOBIN 6.6 GM/dL (11.7-16.9)
[2024-02-16 07:26] LABS: ALBUMIN 1.4 g/dl (3.4-5.0); CALCIUM 7.8 mg/dL (8.5-10.1)
[2024-02-16 07:27] LABS: BLOOD UREA NITROGEN 11.5 mg/dL (7-18)
[2024-02-16 07:30] LABS: CREATININE 0.4 mg/dL (0.55-1.3)
[2024-02-16 07:31] LABS: BILIRUBIN,TOTAL 0.6 mg/dL (0.2-1); TOT PROT 5.6 g/dl (6.4-8.2)
[2024-02-16 20:45] LABS: HEMATOCRIT 23.8 % (35.4-49); HEMOGLOBIN 7.9 GM/dL (11.7-16.9); MCH 30.9 pg (25.7-33.7); MCHC 33.1 g/dl (32.0-35.9); MEAN CELL VOLUME 93.3 fl (80-96); MEAN PLT VOLUME 7.2 fl (7.5-11.1); PLATELET COUNT 526 10^3/uL (134-434); RBC 2.55 M/mm3 (4.00-5.60); RDW 14.4 % (11.9-15.9); WHITE BLOOD COUNT 7.3 K/mm3 (4.0-10.0)
[2024-02-17 07:42] LABS: HEMATOCRIT 21.3 % (35.4-49); HEMOGLOBIN 7.2 GM/dL (11.7-16.9); MCH 31.4 pg (25.7-33.7); MCHC 33.7 g/dl (32.0-35.9); MEAN PLT VOLUME 7.2 fl (7.5-11.1); PLATELET COUNT 483 10^3/uL (134-434); RBC 2.29 M/mm3 (4.00-5.60); RDW 14.2 % (11.9-15.9); WHITE BLOOD COUNT 7.1 K/mm3 (4.0-10.0)
[2024-02-17 08:23] LABS: POTASSIUM 3.7 mmol/L (3.5-5.1)
[2024-02-17 08:54] LABS: ALBUMIN 1.4 g/dl (3.4-5.0); CALCIUM 7.8 mg/dL (8.5-10.1)
[2024-02-17 08:55] LABS: BLOOD UREA NITROGEN 13.9 mg/dL (7-18); MAGNESIUM 2.2 mg/dL (1.8-2.4)
[2024-02-17 08:56] LABS: CREATININE 0.4 mg/dL (0.55-1.3)
[2024-02-17 08:58] LABS: PHOSPHOROUS 3.1 mg/dL (2.5-4.9)
[2024-02-17 08:59] LABS: TOT PROT 5.4 g/dl (6.4-8.2)
[2024-02-17 09:00] LABS: BILIRUBIN,TOTAL 0.5 mg/dL (0.2-1)
[2024-02-17] MEDS ORDERED: FIDAXOMICIN 200 MG TABLET PO SCH ×2 (16:37→22:00)
[2024-02-17] MEDS: FIDAXOMICIN 200 MG TABLET PO SCH (22:28)
[2024-02-18 07:34] LABS: BASO % 0.6 % (0-2.0); EOS % 1.3 % (0-4.5); HEMATOCRIT 21.6 % (35.4-49); HEMOGLOBIN 7.1 GM/dL (11.7-16.9); LYMPH % 30.2 % (8-40); MCH 30.7 pg (25.7-33.7); MCHC 32.7 g/dl (32.0-35.9); MEAN CELL VOLUME 93.9 fl (80-96); MEAN PLT VOLUME 7.2 fl (7.5-11.1); MONO % 10.3 % (3.8-10.2); NEUT % 57.6 % (42.8-82.8); PLATELET COUNT 490 10^3/uL (134-434); RDW 14.3 % (11.9-15.9); WHITE BLOOD COUNT 5.5 K/mm3 (4.0-10.0)
[2024-02-18 07:53] LABS: POTASSIUM 3.5 mmol/L (3.5-5.1)
[2024-02-18 07:55] LABS: CALCIUM 7.5 mg/dL (8.5-10.1)
[2024-02-18 07:56] LABS: ALBUMIN 1.3 g/dl (3.4-5.0); BLOOD UREA NITROGEN 12.6 mg/dL (7-18)
[2024-02-18 07:59] LABS: CREATININE 0.4 mg/dL (0.55-1.3); PHOSPHOROUS 3.3 mg/dL (2.5-4.9)
[2024-02-18 08:00] LABS: BILIRUBIN,TOTAL 0.4 mg/dL (0.2-1); TOT PROT 5.6 g/dl (6.4-8.2)
[2024-02-19 07:29] LABS: HEMATOCRIT 22.3 % (35.4-49); HEMOGLOBIN 7.3 GM/dL (11.7-16.9); MCH 30.7 pg (25.7-33.7); MEAN PLT VOLUME 7.2 fl (7.5-11.1); PLATELET COUNT 564 10^3/uL (134-434); RBC 2.39 M/mm3 (4.00-5.60); WHITE BLOOD COUNT 5.4 K/mm3 (4.0-10.0)
[2024-02-19 07:56] LABS: ALBUMIN 1.4 g/dl (3.4-5.0); BLOOD UREA NITROGEN 10.3 mg/dL (7-18); CALCIUM 7.8 mg/dL (8.5-10.1)
[2024-02-19 07:59] LABS: CREATININE 0.4 mg/dL (0.55-1.3)
[2024-02-19 08:00] LABS: BILIRUBIN,TOTAL 0.3 mg/dL (0.2-1); TOT PROT 5.8 g/dl (6.4-8.2)
[2024-02-19] MEDS: FIDAXOMICIN 200 MG TABLET PO SCH (15:02)
[2024-02-20] MEDS: ACETAMINOPHEN 1000 MG/100 ML BAG IVPB PRN (04:15)
[2024-02-20] MEDS: VALPROATE SODIUM 250 MG/5 ML UNIT DOSE CUP GT SCH (05:42)
[2024-02-20] MEDS: MIDODRINE HCL 5 MG TABLET PO SCH (10:12)
[2024-02-20] MEDS: Lacosamide 50 MG/5 ML ORAL SOLUTION UNIT CUPS GT SCH (10:12)
[2024-02-20] MEDS: levETIRAcetam 500 MG/5 ML ORAL SOLUTION (UNIT-DOSE CUPS) GT SCH (10:12)
[2024-02-20] MEDS: BETHANECHOL CHLORIDE 25 MG TABLET GT SCH (10:13)
[2024-02-20] MEDS: AMINO ACIDS/PROTEIN HYDROLYS 30 ML LIQUID.PKT GT SCH (10:13)
[2024-02-20 10:17] LABS: HEMATOCRIT 27.6 % (35.4-49); HEMOGLOBIN 9.2 GM/dL (11.7-16.9); MCH 31.5 pg (25.7-33.7); MCHC 33.4 g/dl (32.0-35.9); MEAN CELL VOLUME 94.5 fl (80-96); MEAN PLT VOLUME 7.3 fl (7.5-11.1); PLATELET COUNT 620 10^3/uL (134-434); RBC 2.92 M/mm3 (4.00-5.60); WHITE BLOOD COUNT 6.2 K/mm3 (4.0-10.0)
[2024-02-20] MEDS: FIDAXOMICIN 200 MG TABLET PO SCH (10:22)
[2024-02-20] MEDS: ENOXAPARIN NA (PORCINE) 40 MG/0.4 ML DISP.SYRIN SQ SCH (10:24)
[2024-02-20 10:39] LABS: POTASSIUM 4.3 mmol/L (3.5-5.1)
[2024-02-20 10:47] LABS: CALCIUM 8.2 mg/dL (8.5-10.1)
[2024-02-20 10:48] LABS: BLOOD UREA NITROGEN 10.5 mg/dL (7-18)
[2024-02-20 10:50] LABS: ALBUMIN 1.8 g/dl (3.4-5.0); CREATININE 0.5 mg/dL (0.55-1.3)
[2024-02-20 10:52] LABS: BILIRUBIN,TOTAL 0.5 mg/dL (0.2-1); TOT PROT 7.2 g/dl (6.4-8.2)
[2024-02-20] MEDS: SILVER SULFADIAZINE 1% TOP CREAM 50 GM JAR TP SCH (12:44)
[2024-02-20] MEDS: ZINC OXIDE 20% TOPICAL OINTMENT 30 GM TUBE TP SCH (12:44)
[2024-02-20] MEDS: LACTOBACILLUS ACIDOPHILUS 1 TABLET GT SCH (21:41)
[2024-02-21 10:33] LABS: BASO % 1.2 % (0-2.0); EOS % 0.3 % (0-4.5); HEMATOCRIT 25.5 % (35.4-49); HEMOGLOBIN 8.6 GM/dL (11.7-16.9); LYMPH % 10.4 % (8-40); MCH 31.8 pg (25.7-33.7); MCHC 33.8 g/dl (32.0-35.9); MEAN CELL VOLUME 94.1 fl (80-96); MEAN PLT VOLUME 7.4 fl (7.5-11.1); MONO % 5.4 % (3.8-10.2); NEUT % 82.7 % (42.8-82.8); PLATELET COUNT 674 10^3/uL (134-434); RBC 2.71 M/mm3 (4.00-5.60); RDW 14.3 % (11.9-15.9); WHITE BLOOD COUNT 12.5 K/mm3 (4.0-10.0)
[2024-02-21 10:52] LABS: POTASSIUM 4.5 mmol/L (3.5-5.1)
[2024-02-21 11:11] LABS: ALBUMIN 1.8 g/dl (3.4-5.0); BLOOD UREA NITROGEN 11.5 mg/dL (7-18); CALCIUM 8.6 mg/dL (8.5-10.1)
[2024-02-21 11:13] LABS: MAGNESIUM 2.1 mg/dL (1.8-2.4)
[2024-02-21 11:14] LABS: CREATININE 0.4 mg/dL (0.55-1.3); PHOSPHOROUS 2.9 mg/dL (2.5-4.9)
[2024-02-21 11:16] LABS: BILIRUBIN,TOTAL 0.3 mg/dL (0.2-1)
[2024-02-22] MEDS: SCOPOLAMINE HYDROBROMIDE 1 PATCH PATCH.TD72 TD SCH (11:16)
[2024-02-22 13:33] LABS: BASO % 0.6 % (0-2.0); EOS % 0.1 % (0-4.5); HEMATOCRIT 24.1 % (35.4-49); HEMOGLOBIN 7.9 GM/dL (11.7-16.9); LYMPH % 15.6 % (8-40); MCHC 32.9 g/dl (32.0-35.9); MEAN CELL VOLUME 94.2 fl (80-96); MEAN PLT VOLUME 7.4 fl (7.5-11.1); MONO % 6.2 % (3.8-10.2); NEUT % 77.5 % (42.8-82.8); PLATELET COUNT 659 10^3/uL (134-434); RBC 2.56 M/mm3 (4.00-5.60); RDW 14.5 % (11.9-15.9); WHITE BLOOD COUNT 11.3 K/mm3 (4.0-10.0)
[2024-02-22 13:57] LABS: POTASSIUM 4.4 mmol/L (3.5-5.1)
[2024-02-22 14:02] LABS: ALBUMIN 1.7 g/dl (3.4-5.0); BLOOD UREA NITROGEN 14.3 mg/dL (7-18); CALCIUM 8.4 mg/dL (8.5-10.1); MAGNESIUM 2.3 mg/dL (1.8-2.4)
[2024-02-22 14:05] LABS: CREATININE 0.4 mg/dL (0.55-1.3)
[2024-02-22 14:06] LABS: BILIRUBIN,TOTAL 0.3 mg/dL (0.2-1); PHOSPHOROUS 3.8 mg/dL (2.5-4.9); TOT PROT 6.9 g/dl (6.4-8.2)
[2024-02-23 10:34] LABS: BASO % 0.6 % (0-2.0); EOS % 0.4 % (0-4.5); HEMATOCRIT 27.8 % (35.4-49); HEMOGLOBIN 9.4 GM/dL (11.7-16.9); LYMPH % 15.5 % (8-40); MCH 31.9 pg (25.7-33.7); MCHC 33.7 g/dl (32.0-35.9); MEAN CELL VOLUME 94.6 fl (80-96); MEAN PLT VOLUME 7.5 fl (7.5-11.1); MONO % 7.2 % (3.8-10.2); NEUT % 76.3 % (42.8-82.8); PLATELET COUNT 757 10^3/uL (134-434); RBC 2.94 M/mm3 (4.00-5.60); RDW 15.4 % (11.9-15.9); WHITE BLOOD COUNT 11.2 K/mm3 (4.0-10.0)
[2024-02-23 11:15] LABS: POTASSIUM 4.5 mmol/L (3.5-5.1)
[2024-02-23 11:18] LABS: ALBUMIN 1.8 g/dl (3.4-5.0); BLOOD UREA NITROGEN 17.7 mg/dL (7-18); CALCIUM 8.2 mg/dL (8.5-10.1)
[2024-02-23 11:21] LABS: CREATININE 0.6 mg/dL (0.55-1.3)
[2024-02-23 11:23] LABS: BILIRUBIN,TOTAL 0.3 mg/dL (0.2-1); TOT PROT 7.5 g/dl (6.4-8.2)
[2024-02-24 11:13] LABS: BASO % 0.7 % (0-2.0); EOS % 0.8 % (0-4.5); HEMOGLOBIN 8.5 GM/dL (11.7-16.9); LYMPH % 14.9 % (8-40); MCH 31.3 pg (25.7-33.7); MCHC 32.5 g/dl (32.0-35.9); MEAN CELL VOLUME 96.1 fl (80-96); MEAN PLT VOLUME 7.4 fl (7.5-11.1); MONO % 7.9 % (3.8-10.2); NEUT % 75.7 % (42.8-82.8); PLATELET COUNT 694 10^3/uL (134-434); WHITE BLOOD COUNT 12.3 K/mm3 (4.0-10.0)
[2024-02-24 11:27] LABS: POTASSIUM 4.1 mmol/L (3.5-5.1)
[2024-02-24 11:28] LABS: ALBUMIN 1.8 g/dl (3.4-5.0); CALCIUM 8.4 mg/dL (8.5-10.1)
[2024-02-24 11:31] LABS: CREATININE 0.4 mg/dL (0.55-1.3)
[2024-02-24 11:34] LABS: BILIRUBIN,TOTAL 0.3 mg/dL (0.2-1)
[2024-02-25 10:01] LABS: BASO % 0.5 % (0-2.0); HEMATOCRIT 24.3 % (35.4-49); HEMOGLOBIN 8.2 GM/dL (11.7-16.9); LYMPH % 18.8 % (8-40); MCH 32.3 pg (25.7-33.7); MCHC 33.6 g/dl (32.0-35.9); MEAN PLT VOLUME 7.1 fl (7.5-11.1); MONO % 9.9 % (3.8-10.2); NEUT % 69.8 % (42.8-82.8); PLATELET COUNT 676 10^3/uL (134-434); RBC 2.53 M/mm3 (4.00-5.60); RDW 14.8 % (11.9-15.9); WHITE BLOOD COUNT 10.1 K/mm3 (4.0-10.0)
[2024-02-25 10:40] LABS: ALBUMIN 1.8 g/dl (3.4-5.0); BILIRUBIN,TOTAL 0.4 mg/dL (0.2-1); BLOOD UREA NITROGEN 20.6 mg/dL (7-18); CREATININE 0.5 mg/dL (0.55-1.3); POTASSIUM 4.1 mmol/L (3.5-5.1); TOT PROT 6.9 g/dl (6.4-8.2)
[2024-02-26 10:52] LABS: BASO % 1.1 % (0-2.0); EOS % 2.2 % (0-4.5); HEMATOCRIT 26.5 % (35.4-49); LYMPH % 16.4 % (8-40); MCH 32.2 pg (25.7-33.7); MCHC 33.7 g/dl (32.0-35.9); MEAN CELL VOLUME 95.4 fl (80-96); MEAN PLT VOLUME 7.6 fl (7.5-11.1); MONO % 8.9 % (3.8-10.2); NEUT % 71.4 % (42.8-82.8); PLATELET COUNT 647 10^3/uL (134-434); RBC 2.78 M/mm3 (4.00-5.60); RDW 15.3 % (11.9-15.9)
[2024-02-26 11:11] LABS: POTASSIUM 4.5 mmol/L (3.5-5.1)
[2024-02-26 11:15] LABS: ALBUMIN 1.9 g/dl (3.4-5.0); CALCIUM 8.2 mg/dL (8.5-10.1)
[2024-02-26 11:16] LABS: BLOOD UREA NITROGEN 17.2 mg/dL (7-18)
[2024-02-26 11:19] LABS: CREATININE 0.5 mg/dL (0.55-1.3)
[2024-02-26 11:20] LABS: BILIRUBIN,TOTAL 0.3 mg/dL (0.2-1); TOT PROT 7.5 g/dl (6.4-8.2)
[2024-02-26 19:32] VITALS: BP 152/89; TEMP 97.7
[2024-02-26 20:31] VITALS: PULSE 108
[2024-02-26 21:25] VITALS: RESP 18
== END 2024-02-26 21:47 | DRG 870 ==
LOC: JER 22:59 → JERBED 01-29 02:16 → J2W 01-29 23:43 → J5S 02-19 23:04
PROVIDERS: ADMIT Internal Medicine
PROC: 5A1955Z Respiratory Ventilation, Greater than 96 Consecutive Hours (ICD-10-PCS; principal; 2024-01-29)
PROC: 30233N1 Transfusion of Nonautologous Red Blood Cells into Peripheral Vein, Percutaneous Approach (ICD-10-PCS; 2024-02-12)
DX: A41.9 Sepsis, unspecified organism (principal); L89.154 Pressure ulcer of sacral region, stage 4; J18.9 Pneumonia, unspecified organism; R53.2 Functional quadriplegia; R65.21 Severe sepsis with septic shock; I50.31 Acute diastolic (congestive) heart failure; A04.72 Enterocolitis due to Clostridium difficile, not specified as recurrent; E87.20 Acidosis, unspecified; Z99.11 Dependence on respirator [ventilator] status; J96.11 Chronic respiratory failure with hypoxia; L03.311 Cellulitis of abdominal wall; E87.0 Hyperosmolality and hypernatremia; R64 Cachexia; Z93.0 Tracheostomy status; Z93.1 Gastrostomy status; G40.909 Epilepsy, unspecified, not intractable, without status epilepticus; R60.1 Generalized edema; R33.9 Retention of urine, unspecified; Z68.24 Body mass index [BMI] 24.0-24.9, adult; D64.9 Anemia, unspecified; D72.829 Elevated white blood cell count, unspecified
CPT/HCPCS: 0241U-QW; 36415; 36430; 71045-TC-FY; 71260-TC; 74018-TC-FY; 74177-TC; 76705-TC; 80053; 81003; 82803; 82962; 83605; 83735; 84100; 84132; 84439; 84443; 84484; 85025; 85027; 85384; 85610; 85730; 86850; 86900; 86901; 86922; 87040; 87045; 87046; 87086; 87324; 87449; 87493; 87635; 93005; 93010; 93306-TC; 93971; 94002; 94640; 99285-25; G0480; J0131; P9038; P9058; Q9967